=== PATIENT | female | born 1955 | race Two or more races ===

== ENCOUNTER 2025-03-16 09:39 | Emergency (ER) | payer OTHER ==
[~2025-03-16] VITALS: Ht 162.6 cm; Wt 100.0 kg
[2025-03-16 09:41] VITALS: BP 197/80; PULSE 0; RESP 0; O2SAT 0
--- NOTE | 2025-03-16 10:11 | ED.PDOC ---
CPR-HPI HPI Comments 70 year old female PMHx CKF, HTN, DM presents to the ED via EMS with a chief complaint of cardiac arrest onset today (03/16/25). Per EMS, patient was talking with family, went unresponsive, family began CPR immediately. Downtime prior to EMS arrival was 5 minutes, total downtime prior to ED arrival was 30 minutes. In route to ED, CPR continued, IO was placed on LLE, bicarb and calcium was given in route to ED, Epi was given upon ED arrival, patient was asystole. Upon ED arrival, patient was asystole, CPR continued, patient was intubated with 8.0 ett, 24 at lip. Patient continued asystole, TOD was called 09:53. No other symptoms or modifying factors present at this time. Chief Complaint: CPR Time Seen by MD: 09:53 Reviewed Notes: Medications, Allergies Allergies: Coded Allergies: NO KNOWN ALLERGIES (Unverified , 03/16/25) Information Source: Emergency Med Personnel Mode of Arrival: EMS Timing: Minutes Duration: Down time prior EMS: (5 minutes), Total time prior hopital: (30 minutes) Onset: At rest Inital rhythm: Asystole Treatment: CPR, Epinephrine (k), Other Associated signs and symptoms: None Past Medical History PAST MEDICAL HISTORY: CKF, DM, HTN Surgical History: Unknown [employer] History: Unknown Family History Family History: Unknown Social History Smoker: Unknown Alcohol: Unknown Drugs: Unknown Lives In: Home Unable to Obtain due to: Medical Urgency Physical Exam General Appearance: Severe Distress HEENT: Other (Pupils fixed and dilated) Neck: NOT DONE Respiratory: Respiratory Distress, Other (Intubate the patient) Cardiovascular: Other (No pulse) Breast Exam: Deferred Gastrointestinal: Distended Genitalia: Deferred Pelvic: Deferred Rectal: Deferred Extremities: NOT DONE Neurologic: Other (Unconscious) Cerebellar Function: NOT DONE Reflexes: NOT DONE Skin: Pallor Peripheral Pulses: 0 Radial (R), 0 Radial (L) Lymphatic: NOT DONE Was a procedure done? 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 Indication: Inability to obtain IV Room prepared for procedure: Yes [employer] performed hand hygien: Yes Maximal sterile barrier precau: Mask/Eye shield, Sterile gown, Cap, Sterlie gloves, Large sterlie drape Skin Preparation: Chlorhexidine gluconate, Providine iodine, Alcohol Skin preparation completely dr: Yes Insertion site: Right, Femoral Central line catheter type: [id number] dialysis Number of lumens: 3 Central line exchanged over a: Yes Antiseptic ointment applied to: Yes Informed consent obtained: Yes Risks/benefits/alt described: Yes Intubation Indication: Respiratory Insufficiency Medicated with: Other Intubation Approach: Orotracheal (8.0 ett) Intubation size: cm (24) Informed consent obtained: Yes Risks/benefits/alt described: Yes Differential Dx CPR Differential Diagnosis: Cardiopulmonary arrest, Cardiogenic shock X-Ray, Labs, Meds, VS Vital Signs Date Time Temp Pulse Resp B/P (MAP) Pulse Ox O2 Delivery O2 Flow Rate FiO2 03/16/25 10:37 205.9 Ambu-Bag 03/16/25 09:41 0 0 197/80 (119) 0 03/16/25 09:41 0 0 0 Room Air* 0 21 03/16/25 09:39 0 0 0/0 0 Patient unconscious. She was never intubated. Intubated the patient. ACLS drugs use. Continuous CPR. She was asystole throughout the ER. Did not have airway protection for more than 35 minutes. Continuous CPR. Spoke with the team. Has a covered all the medication. Had to pronounce. Informed the family. Time of 1ST Reevaluation: 17:45 Reevaluation 1ST: Unchanged Patient Education/Counseling: Other Family Education/Counseling: No Family Present SEPSIS Sepsis Screen Physician Orders Urinalysis (03/16/25 09:50) Vital Signs Date Time Temp Pulse Resp B/P (MAP) Pulse Ox O2 Delivery O2 Flow Rate FiO2 03/16/25 10:37 205.9 Ambu-Bag 03/16/25 09:41 0 0 197/80 (119) 0 03/16/25 09:41 0 0 0 Room Air* 0 21 03/16/25 09:39 0 0 0/0 0 Departure 1 Departure Time of Disposition: 17:44 Impression: Primary Impression: Cardiac arrest Disposition: 20 Condition: Other Critical Care Note Critical Care Time?: Yes (45 min-critical care time only) Heart Score Heart Score: Heart Score Response (Comments) Value History N/A 0 EKG N/A 0 Age N/A 0 Risk Factors N/A 0 Troponin N/A 0 Total 0 Stability Stability form required: No I personally scribed for JESSI LUCAS MD ([email or web address]) on 03/16/25 at 10:11. Electronically submitted by Amanda Dominique ([email or web address]). JESSI LUCAS MD Mar 16, 2025 10:11
--- NOTE | 2025-03-16 10:37 | RESUS ---
CODE BLUE ASSESSSMENT History of Events History of Events: Patient brought to ER via EMS, CPR in progress via MICHEAL device. Per EMS, initial call received was for unresponsive person with no pulse. Patient's family reports patient c/o sudden onset chest pain and shortly after became unresponsive with no detectable pulse. Chest compressions intiated by family until arrival of EMS crew. EMS reports patient remained asystole entire time in field. Total downtime prior to ER arrival approximately 30min. EMS administered total 6 rounds of epi, 1 sodium bicarb, IO to left lower extremity, OG tube secured 55 at the lip, BLS airway Initial Information Date: Mar 16, 2025 Time: 09:41 Location of Arrest: In Field Arrest Witnessed: Yes CPR started by whom: Bystander Pre-Hospital Care: ACLS Type of arrest: Cardiac, Respiratory Spontaneous Respirations: No Pulse Present: No Monitoring: Pulse Oximetry, Capnography, Telemetry Crash Cart Opened and Supplies: Yes Airway Ventilation Breathing at Onset: Assisted Oxygen Delivery Method: Ambu-Bag Artificial Ventilation: Bag/Endo tube Intubation Size: 8.0 cuffed Intubated by: RT Patterson Intubation Attempts: 1 Intubated orally: Yes Intubated Nasaly: No Tube secured at: 24 Cricoid pressure done: No CO2 indicator used: Yes Confirmation: Auscultation, Exhaled CO2 Suctioning (Oral/Tracheal): Yes Comments: BLS airway established by EMS. Patient intubated in hospital Circulation Circulation #1: Time: 09:41 Circulation Comment: asystole Circulation #2: Time: 09:43 Circulation Comment: asystole Circulation #3: Time: 09:45 Circulation Comment: asystole Circulation #4: Time: 09:48 Circulation Comment: asystole Circulation #5: Time: 09:50 Circulation Comment: asystole Circulation #6: Time: 09:53 Temperature (Fahrenheit): 96.6 Circulation Comment: asystole/ TOD Procedure - IV Procedure - IV #1: IV start time: 09:43 IV Side: Left IV Location: Antecubital IV Catheter Type: Peripheral IV IV Placed: In Hospital IV Placed by DILLON Gan IV Gauge: 20 IV Line Care: Saline Flush Procedure - IV #2: IV start time: 09:47 IV Side: Right IV Location: Femoral IV Catheter Type: Triple Lumen Cath IV Placed: MD IV Placed by DR Kirill Montero IV Line Care: Saline Flush Procedure - Intraosseous Site of Intraosseous: Tibia girish-medial Intraosseous inserted by: left lower extremity. placed by EMS Medications & Response Medications and Responses #1: Medication Time: 09:44 ADULT Medications Given ADULT: Epinephrine 1 mg, Sodium Bacarbinate 50 meq Route of Administration: IV Medication Comment: Delayed in giving due to no IV established. Established field IO was not functioning properly Medications and Responses #2: Medication Time: 09:45 ADULT Medications Given ADULT: Calcium Chloride 10 mL Route of Administration: IV Medications and Responses #3: Medication Time: 09:48 ADULT Medications Given ADULT: Epinephrine 1 mg, Sodium Bacarbinate 50 meq Route of Administration: IV Medications and Responses #4: Medication Time: 09:51 ADULT Medications Given ADULT: Epinephrine 1 mg Route of Administration: IV Nurses Notes [place] Coma Scale Eye Opening: None (1) [place] Coma Scale Verbal: None (1) [place]rad Coma Scale Motor: None (1) Pupil Reaction: Non Reactive Bedside Blood Glucose: 146 EKG Rhythm: Asystole Time Code Ended Time Code Ended: 09:53 Post Arrest Status: Outcome of code: Unsuccessful Patient pronounced by: Dr Bass Time patient pronounced: 09:53 Family notified: Yes Code Team Present: Dr Shelia Montero RT Leonardo RT Rebecca Jackson RN Dasha Post Resuscitation Neurologica Pupil Size: 7 Dasha Blankenship Mar 16, 2025 10:37
== END 2025-03-16 17:58 ==
LOC: EDBD 09:39 → ER 09:51
DX: I46.9 Cardiac arrest, cause unspecified (principal); I10 Essential (primary) hypertension; E11.9 Type 2 diabetes mellitus without complications; F17.200 Nicotine dependence, unspecified, uncomplicated; Z79.899 Other long term (current) drug therapy
CPT/HCPCS: 31500; 36556; 82947; 92950; 99291